=== PATIENT | male | born 1970 | race Hispanic/Latino ===

== ENCOUNTER 2016-08-04 15:42 | Inpatient (IN) | payer BC, MEDICAID ==
--- NOTE | 2016-08-04 17:09 | C.PDOC ---
History Of Present Illness 45-year-old male, presents to the emergency department, who is pre-screened from detox from Heroin and Benzos. Patients last use was today. No other complaints at this time. Time Seen by Provider: 08/04/16 16:36 Chief Complaint (Nursing): Substance Abuse History Per: Patient History/Exam Limitations: no limitations Past Medical History Reviewed: Historical Data, Nursing Documentation, Vital Signs Vital Signs: Last Vital Signs Temp 98.3 F 08/04/16 16:21 Pulse 102 H 08/04/16 16:21 Resp 18 08/04/16 16:21 BP 141/98 H 08/04/16 16:21 Pulse Ox 95 08/04/16 18:41 - Medical History PMH: No Chronic Diseases Family History: States: Unknown Family Hx - Social History Hx Alcohol Use: No Hx Substance Use: Yes - Immunization History Hx Tetanus Toxoid Vaccination: Yes Hx Influenza Vaccination: Yes Hx Pneumococcal Vaccination: Yes Review Of Systems Except As Marked, All Systems Reviewed And Found Negative. Constitutional: Negative for: Fever, Chills Cardiovascular: Negative for: Chest Pain, Palpitations Respiratory: Negative for: Shortness of Breath Gastrointestinal: Negative for: Nausea, Vomiting Skin: Negative for: Rash Neurological: Negative for: Weakness, Numbness, Headache, Dizziness Psych: Negative for: Suicidal ideation Physical Exam - Physical Exam Appears: Non-toxic, No Acute Distress Skin: Normal Color, Warm, Dry, No Rash Head: Atraumatic, Normacephalic Eye(s): bilateral: Normal Inspection, PERRL, EOMI Nose: Normal Oral Mucosa: Moist Lips: Normal Appearing Neck: Normal ROM Cardiovascular: Rhythm Regular (Tachycardic), No Murmur Respiratory: Normal Breath Sounds Extremity: Normal ROM Neurological/Psych: Oriented x3, Normal Speech, Other (Anxious) ED Course And Treatment - Laboratory Results Result Diagrams: 08/04/16 17:44 08/04/16 17:44 Lab Interpretation: No Acute Changes O2 Sat by Pulse Oximetry: 95 Medical Decision Making Medical Decision Making: Impression 45y/o M pre-screened for detox Plan: * EtOH Serum, CMP, UDS * CBC * Urinalysis * Crisis Evaluation Labs ordered and reviewed. In my clinical judgment patient is medically cleared and stable for psychiatric admission. Patient accepted to Dr Karel yin for detox Disposition - Disposition Disposition: HOSPITALIZED Disposition Time: 18:47 Condition: STABLE - POA Present On Arrival: None - Clinical Impression Clinical Impression: Opiate dependence, Benzodiazepine abuse - Scribe Statement The provider has reviewed the documentation as recorded by the Toroibmelia Merritt All medical record entries made by the Scribe were at my direction and personally dictated by me. I have reviewed the chart and agree that the record accurately reflects my personal performance of the history, physical exam, medical decision making, and the department course for this patient. I have also personally directed, reviewed, and agree with the discharge instructions and disposition. Decision To Admit - Pt Status Changed To: Hospital Disposition Of: Inpatient - Admit Certification Admit to Inpatient:: After my assessment, the patient will require hospitalization for at least two midnights. This is because of the severity of symptoms shown, intensity of services needed, and/or the medical risk in this patient being treated as an outpatient. - InPatient: Physician Admission Certification: I certify that this patient requires 2 or more midnights of care for the following reason:: Patient to be admitted for detox - . Bed Request Type: Detox Admitting Physician: Natalie Vinson Patient Diagnosis: Opiate dependence, Benzodiazepine abuse
[2016-08-04 17:50] LABS: BASO # 0.1 K/uL (0.0-0.2); BASO % 1.1 % (0.0-2.0); EOS # 0.2 K/uL (0.0-0.7); EOS % 2.8 % (0.0-4.0); HEMATOCRIT 40.4 % (35.0-51.0); LYMPH # 2.2 K/uL (1.0-4.3); LYMPH % 27.7 % (20.0-40.0); MEAN CELL VOLUME 83.8 fL (80.0-94.0); MEAN CORPUSCULAR HEMOGLOBIN 27.8 pg (27.0-31.0); MEAN CORPUSCULAR HGB CONC 33.1 g/dL (33.0-37.0); MEAN PLATELET VOLUME 8.1 fL (7.2-11.7); MONO # 0.6 K/uL (0.0-0.8); MONO % 7.5 % (0.0-10.0); RED CELL DISTRIBUTION WIDTH 13.8 % (11.5-14.5)
[2016-08-04 17:57] LABS: RBC URINE 4 /hpf (0-3); URINE BACTERIA RARE (<OCC); URINE BILIRUBIN NEGATIVE (NEGATIVE); URINE BLOOD 1+ (NEGATIVE); URINE COLOR Yellow (YELLOW); URINE GLUCOSE (UA) NORMAL (Normal); URINE KETONE TRACE mg/dL (NEGATIVE); URINE LEUKOCYTE ESTERASE NEG Leu/uL (Negative); URINE PROTEIN 1+ mg/dL (NEGATIVE); URINE UROBILINOGEN NORMAL mg/dL (0.2-1.0); WBC URINE 3 /hpf (0-5)
[2016-08-04 17:57] LABS: CHLORIDE 101 mmol/L (98-107)
[2016-08-04 17:58] LABS: POTASSIUM 4.3 mmol/L (3.6-5.2); SODIUM 139 mmol/L (132-148)
[2016-08-04 18:00] LABS: ALB/GLOB RATIO 1.4 (1.0-2.1); AST/SGOT 34 U/L (17-59); BILIRUBIN,TOTAL 0.8 mg/dL (0.2-1.3); CARBON DIOXIDE 28 mmol/L (22-30); GFR AFRICAN-AMERICAN > 60; TOTAL PROTEIN 7.7 g/dL (6.3-8.3)
[2016-08-04 18:01] LABS: ALCOHOL SERUM < 10 mg/dl (0-10); ALKALINE PHOSPHATASE 77 U/L (38-126); ALT/SGPT 51 U/L (21-72); BLOOD UREA NITROGEN 11 mg/dL (9-20); CALCIUM 9.9 mg/dl (8.6-10.4); GLUCOSE,RANDOM 85 mg/dL (75-110)
[2016-08-04] MEDS ORDERED: Buprenorphine Hydrochloride 2 mg SL ONE ×2 (20:45→21:45)
[2016-08-04] MEDS ORDERED: Vitamins A & D Oint UD Foilpak TOP PRN (22:01)
[2016-08-04] MEDS ORDERED: Aluminum Hydroxide/Magnesium Hydroxide Susp (30 mL) PO PRN (22:36)
--- NOTE | 2016-08-05 10:05 | PCM.PSYCH ---
Initial Psychiatric Evaluation - Initial Psychiatric Evaluation Type of Admission: Voluntary Legal Status: Capacity Chief Complaint (in patient's own words): "i need help" History of Present Illness and Precipitating Events: The patient is seen, chart reviewed and case discussed. 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 He lives with his mother in [place]. The patient is here for opioid and benzo use. He states he has been using IV heroin for the last 6 months up to 20 bags a day. He started opiates in college but stopped for 10 years and then resumed in 2004 and got "very bad" in 2006. He has been to detox more than 5 times and rehabilitation treatment times including [facility] twice. He describes prolonged wdw sxs and claims he is better now. He also uses klonopin "several pills" a day. No seizures. He was on methadone in the past and Suboxone as well for about 8 months. He denies all other drugs and alcohol and he is not a smoker. The patient has some ADHD symptoms which he was diagnosed as a child, but untreated. He is also slightly hypomanic but no psychosis, depression or raad elicited. He is cooperative, pleasant and motivated. Past psych history: No diagnosis, treatment or admission. No suicide attempts. He was diagnosed with ADHD but he refused treatment as a child. Family psych history: PTSD Medical history: Overweight Current Medications: Active Medications Generic Name Dose Route Start Last Admin Trade Name Freq PRN Reason Stop Dose Admin Al Hydrox/Mg Hydrox/Simethicone 30 ml 08/04/16 22:36 Maalox 30 Ml PO TID PRN Indigestion / Heartburn Buprenorphine HCl 8 mg 08/05/16 10:00 Subutex SL 08/09/16 09:59 DAILY BERNARDO Taper Chlordiazepoxide 25 mg 08/05/16 00:00 08/05/16 06:17 Librium PO 08/08/16 23:59 25 mg Q6 BERNARDO Administration Taper Chlordiazepoxide 25 mg 08/04/16 22:38 Librium PO Q4H PRN Alcohol Withdrawal Clonidine HCl 0.1 mg 08/04/16 22:36 08/05/16 07:32 Catapres PO 0.1 mg Q8 PRN Administration COWS Score More or Equal to 5 Clonidine HCl 0.1 mg 08/05/16 22:00 Catapres PO HS BERNARDO Gabapentin 300 mg 08/05/16 10:00 Neurontin PO TID BERNARDO Gabapentin 600 mg 08/05/16 22:00 Neurontin PO HS BERNARDO Hydroxyzine HCl 25 mg 08/04/16 21:57 08/05/16 04:18 Atarax PO 25 mg Q6H PRN Administration Anxiety Loperamide HCl 2 mg 08/04/16 22:36 Imodium PO Q8 PRN Diarrhea Ondansetron HCl 4 mg 08/04/16 22:36 Zofran Tab PO Q8 PRN Nausea/Vomiting Vitamin A 1 ea 08/04/16 22:01 08/04/16 22:12 Vitamin A & D Oint Ud Foilpak TOP 1 ea BID PRN Administration Dry Skin Past Psychiatric History - Past Psychiatric History Previous Treatment History: None Pertinent Medical Hx (Current Medical&Sleep Prob, Allergies): Allergies Allergy/AdvReac Type Severity Reaction Status Date / Time No Known Allergies Allergy Verified 08/04/16 16:30 Clonazepam [Klonopin] 2 mg PO DAILY 08/04/16 Clonazepam [Klonopin] 4 mg PO HS 08/04/16 Review of Systems - Neurological Neurological: UNREMARKABLE - Psychiatric Psychiatric: Abnormal Sleep Pattern, Anxiety, Behavioral Changes, Change in Appetite, Irritability. absent: Hallucinations, Homicidal Ideation, Suicidal Ideation Mental Status Examination - Personal Presentation Personal Presentation: Looks stated age - Affect Affect: Other (expansive) - Motor Activity Motor Activity: Calm - Reliability in Providing Information Reliability in Providing Information: Good - Speech Speech: Other (pressured) - Mood Mood: Other (elated) - Formal Thought Process Formal Thought Process: No Impairment - Cognitive Functions Orientation: Person, Place, Situation, Time Sensorium: Alert Estimate of Intelligence: Average Judgement: Intact, as evidence by: Insight regarding need for hospitalization Memory: Recent intact, as evidence by: Ability to recall events of the day, Remote intact, as evidenced by: Abilit to recall sig. 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 use d/o - severe ADHD r/o bipolar II d/o - hypomania - Recommended/Plan of Treatment Treatment Recommendations and Plan of Treatment: Opioid use d/o and wdw: - Subutex detox - As needed meds - Attend groups and activities - [facility] - Refer to rehab Sedative, hypnotic, anxiolytic use d/o and wdw: - Librium detox - Gabapentin - Clonidine and vistaril for insomnia - As needed meds - Attend groups and activities - [facility] - Refer to rehab 33 min Projected ELOS: 5 days Prognosis: good Discharge Plan and Discharge Criteria: no wdw sxs refer to rehab - Smoking Cessation Smoking Cessation Initiated: No Reason for not providing: non smoker
[2016-08-05] MEDS: Buprenorphine Hydrochloride 2 mg SL SCH (10:25)
[2016-08-05] MEDS ORDERED: Magnesium Hydroxide Susp 30 ml UD PO ONE (17:49)
[2016-08-06] MEDS: Buprenorphine Hydrochloride 2 mg SL SCH (09:57)
--- NOTE | 2016-08-06 10:12 | PCM.PYCHPN ---
Psychiatric Progress Note - Psychiatric Progress Note Patient seen today, length of contact: 15 min Patient Chief Complaint: "I'm feeling ok" Problems Identified/Issues Discussed: Patient is seen, chart reviewed, case discussed. Patient reports that he is feeling fine. He complains of constipation and sweats. He denies nausea, vomiting, runny nose, watery eyes and abdominal cramps. Patient says he slept well last night. Patient is having anxiety about what will happen when he leaves. He says he feels good and motivated but when he finishes detox he is worried he will feel sick and want to use again. He says in the past he would feel sick for a month after detox. Pt describes himself as very high energy and uses drugs to help himself "mellow out." Aftercare was discussed and patient plans on going to [facility]. Support and psychoeducation given. Medication Change: No Medical Record Reviewed: Yes Mental Status Examination - Cognitive Function Orientation: Person, Place, Situation, Time Memory: Intact Attention: WNL Concentration: Poor Association: WNL Fund of Knowledge: Poor - Mood Mood: Anxious, Other (elated) - Affect Affect: Other (expansive) - Formal Thought Process Formal Thought Process: No Impairment - Suicidal Ideation Suicidal Ideation: No - Homicidal Ideation Homicidal Ideation: No Goal/Treatment Plan - Goal/Treatment Plan Need for Continued Stay: Discharge may exacerbated symptoms, Severe functional impairment Progress Toward Problem(s) and Goals/Treatment Plan: Opioid use d/o and wdw: - Subutex detox - As needed meds - Attend groups and activities - [facility] and [facility] - Refer to rehab Sedative, hypnotic, anxiolytic use d/o and wdw: - Librium detox - Gabapentin - Clonidine and vistaril for insomnia - As needed meds - Attend groups and activities - [facility] and [facility] - Refer to rehab Constipation -Start Colace -Start Milk of Magnesium -Monitor s/s - Smoking Cessation Smoking Cessation Initiated: No
[2016-08-06] MEDS: Magnesium Hydroxide Susp 30 ml UD PO PRN (12:46)
[2016-08-07] MEDS: Buprenorphine Hydrochloride 2 mg SL SCH (09:31)
--- NOTE | 2016-08-07 11:54 | PCM.PYCHPN ---
Psychiatric Progress Note - Psychiatric Progress Note Patient seen today, length of contact: 15 min Patient Chief Complaint: "I'm feeling better" Problems Identified/Issues Discussed: Patient seen and evaluated, chart reviewed and discussed with the nurse. The patient reports improvement in his mood and reports improvement in withdrawal symptoms. he still reports anxiety, headaches and sweating. As per the patient he is feeling much better after taking Colace as his constipation is resolved. Patient is scheduled to be discharged on Tuesday. He denies any suicidal ideation or homicidal ideation. Patient is taking medications and denies any side effects. Supportive therapy and psychoeducation were given. Medication Change: Yes (Subutex taper) Medical Record Reviewed: Yes Mental Status Examination - Cognitive Function Orientation: Person, Place, Situation, Time Memory: Intact Attention: WNL Concentration: WNL Association: WNL Fund of Knowledge: Poor - Mood Mood: Anxious, Other (elated) - Affect Affect: Other (expansive) - Formal Thought Process Formal Thought Process: No Impairment - Suicidal Ideation Suicidal Ideation: No - Homicidal Ideation Homicidal Ideation: No Goal/Treatment Plan - Goal/Treatment Plan Need for Continued Stay: Discharge may exacerbated symptoms, Severe functional impairment Progress Toward Problem(s) and Goals/Treatment Plan: Opioid use d/o and wdw: - Subutex detox - As needed meds - Attend groups and activities - [facility] and [facility] - Refer to rehab Sedative, hypnotic, anxiolytic use d/o and wdw: - Librium detox - Gabapentin - Clonidine and vistaril for insomnia - As needed meds - Attend groups and activities - [facility] and [facility] - Refer to rehab Constipation -Start Colace -Start Milk of Magnesium -Monitor s/s - Smoking Cessation Smoking Cessation Initiated: No
[2016-08-07] MEDS: Magnesium Hydroxide Susp 30 ml UD PO PRN (17:26)
[2016-08-08] MEDS: Buprenorphine Hydrochloride 2 mg SL SCH (09:36)
--- NOTE | 2016-08-08 10:46 | PCM.PYCHPN ---
Psychiatric Progress Note - Psychiatric Progress Note Patient seen today, length of contact: 15 min Patient Chief Complaint: "I'm feeling ok" Problems Identified/Issues Discussed: Patient seen and evaluated, chart reviewed and discussed with the nurse. As per the nurse patient is improving, but is very talkative and appears to be hypomanic. The patient reports improvement in his mood and reports improvement in withdrawal symptoms. however he still reports anxiety. Patient doesn't want to take any medications for hypomania. He denies any suicidal ideation or homicidal ideation. Patient is taking medications and denies any side effects. Supportive therapy and psychoeducation were given. Medication Change: Yes (Subutex taper) Medical Record Reviewed: Yes Mental Status Examination - Cognitive Function Orientation: Person, Place, Situation, Time Memory: Intact Attention: WNL Concentration: WNL Association: WNL Fund of Knowledge: Poor - Mood Mood: Anxious, Other (elated) - Affect Affect: Broad, Other (expansive) - Formal Thought Process Formal Thought Process: No Impairment - Suicidal Ideation Suicidal Ideation: No - Homicidal Ideation Homicidal Ideation: No Goal/Treatment Plan - Goal/Treatment Plan Need for Continued Stay: Discharge may exacerbated symptoms, Severe functional impairment Progress Toward Problem(s) and Goals/Treatment Plan: Opioid use d/o and wdw: - Subutex detox - As needed meds - Attend groups and activities - [facility] - Refer to rehab Sedative, hypnotic, anxiolytic use d/o and wdw: - Librium detox - Gabapentin - Clonidine and vistaril for insomnia - As needed meds - Attend groups and activities - [facility] - Refer to rehab Constipation -Start Colace -Start Milk of Magnesium -Monitor s/s - Smoking Cessation Smoking Cessation Initiated: No
[2016-08-08] MEDS: Magnesium Hydroxide Susp 30 ml UD PO PRN (19:37)
[2016-08-09] MEDS ORDERED: Buprenorphine Hydrochloride 2 mg SL ONE (09:00)
[2016-08-09 09:39] VITALS: BP 134/82; PULSE 92; RESP 20; TEMP 97.9; O2SAT 100
--- NOTE | 2016-08-09 09:47 | PCM.PYCHDC ---
Mental Status Examination - Mental Status Examination Orientation: Person, Place, Situation, Time Discharge Summary - Discharge Note Consultations:: List each consultation separately and include: 1. Reason for request. 2. Findings. 3. Follow-up Summary of Hospital Course include:: 1. Description of specific treatment plan utilized for patients during their course of treatmen. 2. Summarize the time- course for resolution of acute symptoms and/or regressed behaviors. 3. Describe issues identified and worked on during hospitalization. 4. Describe medication utilized. 5. Describe medical problems identified and treated. 6. Reassessment of suicide risk Summary of Hospital Course: The patient is seen, chart reviewed and case discussed. 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 He lives with his mother in [place]. The patient is here for opioid and benzo use. He states he has been using IV heroin for the last 6 months up to 20 bags a day. He started opiates in college but stopped for 10 years and then resumed in 2004 and got "very bad" in 2006. He has been to detox more than 5 times and rehabilitation treatment times including [facility] twice. He describes prolonged wdw sxs and claims he is better now. He also uses klonopin "several pills" a day. No seizures. He was on methadone in the past and Suboxone as well for about 8 months. He denies all other drugs and alcohol and he is not a smoker. The patient has some ADHD symptoms which he was diagnosed as a child, but untreated. He is also slightly hypomanic but no psychosis, depression or raad elicited. He is cooperative, pleasant and motivated. Past psych history: No diagnosis, treatment or admission. No suicide attempts. He was diagnosed with ADHD but he refused treatment as a child. Family psych history: PTSD Medical history: Overweight Hospital course: - Final Diagnosis (DSM 5) Condition upon Discharge: IMPROVED Disposition: REHAB FACILITY/REHAB UNIT Follow-up Treatment Plan: [facility] Prescriptions/Medication Reconciliation: cloNIDine [Catapres] 0.1 mg PO HS #30 tab Gabapentin [Neurontin] 600 mg PO HS #30 tab Gabapentin [Neurontin] 300 mg PO TID #90 cap traZODone [Desyrel] 50 mg PO HS PRN #30 tab PRN Reason: Insomnia - Smoking Cessation Smoking Cessation Medication prescribed: No - Antipsychotic Medications Pt discharged on 2 or more routine antipsychotic medications: No
== END 2016-08-09 10:15 | disposition home or self-care (01) | DRG 745 ==
LOC: C.ER 15:42 → C.7D 18:47
PROVIDERS: ADMIT Psychiatry & Neurology Psychiatry; ATTEND Psychiatry & Neurology Psychiatry
PROC: HZ2ZZZZ Detoxification Services for Substance Abuse Treatment (ICD-10-PCS; principal; 2016-08-05)
PROC: HZ42ZZZ Group Counseling for Substance Abuse Treatment, Cognitive-Behavioral (ICD-10-PCS; 2016-08-05)
PROC: HZ32ZZZ Individual Counseling for Substance Abuse Treatment, Cognitive-Behavioral (ICD-10-PCS; 2016-08-05)
PROC: HZ56ZZZ Individual Psychotherapy for Substance Abuse Treatment, Psychoeducation (ICD-10-PCS; 2016-08-05)
PROC: HZ59ZZZ Individual Psychotherapy for Substance Abuse Treatment, Supportive (ICD-10-PCS; 2016-08-05)
DX: F11.23 Opioid dependence with withdrawal (principal); F31.81 Bipolar II disorder; F13.230 Sedative, hypnotic or anxiolytic dependence with withdrawal, uncomplicated; F90.9 Attention-deficit hyperactivity disorder, unspecified type; G47.00 Insomnia, unspecified; K59.00 Constipation, unspecified